=== PATIENT | male | born 1970 | race Hispanic/Latino ===

== ENCOUNTER 2021-06-21 09:21 | Emergency (ER) | payer OTHER ==
[~2021-06-21] VITALS: Ht 175.3 cm; Wt 103.4 kg
[2021-06-21] MEDS ORDERED: AZITHROMYCIN250 MG PO (12:00)
[2021-06-21] MEDS ORDERED: VENTOLIN HFA18 GM INH (12:00)
[2021-06-21] MEDS ORDERED: DEXAMETHASONE6 MG PO (12:02)
[2021-06-21] MEDS ORDERED: GUAIFEN-CODEINE10 ML PO (12:03)
== END 2021-06-21 12:14 | disposition home or self-care (01) ==
LOC: FSED 09:44
DX: U07.1 COVID-19 (principal); J40 Bronchitis, not specified as acute or chronic; R05.9 Cough, unspecified; R19.7 Diarrhea, unspecified
CPT/HCPCS: 71046; 80053; 81003; 85025; 99283